=== PATIENT | male | born 1990 | race Caucasian/White ===

== ENCOUNTER 2017-03-02 10:27 | Emergency (ER) | payer OTHER ==
[2017-03-02 11:56] LABS: Basophils % (A) 0 %; CH 32.6; CHCM 35.3; Eosinophils # (A) 0.1 k/uL (0-0.7); Eosinophils % (A) 2 %; HCT 44.9 % (39.0-53.0); HDW 2.37; HGB 15.3 gm/dL (13.0-17.5); Luc # (Auto) 0.08; Luc % (Auto) 1; Lymphocytes % (A) 17 %; MCH 31.6 pg (25.0-35.0); MCHC 34.1 g/dL (31.0-37.0); MCV 92.7 fL (80.0-100.0); Mean Platelet Volume 7.1; Monocytes # (A) 0.3 k/uL (0-1.0); Monocytes % (A) 6 %; Neutrophils # (A) 4.1 k/uL (1.3-7.7); Neutrophils % (A) 74 %; RBC 4.84 m/uL (4.30-5.90); RDW 12.1 % (11.5-15.5); WBC 5.6 k/uL (3.8-10.6); WBC (Perox) 5.28
--- NOTE | 2017-03-02 12:05 | XR ---
EXAMINATION TYPE: XR chest 2V DATE OF EXAM: 03/02/2017 12:00 PM COMPARISON: 09/15/2016 HISTORY: Chest pain TECHNIQUE: Frontal and lateral views of the chest are obtained. FINDINGS: There is no focal air space opacity, pleural effusion, or pneumothorax seen. The cardiac silhouette size is within normal limits. The osseous structures are intact. IMPRESSION: No acute cardiopulmonary process.
[2017-03-02 12:13] LABS: Anion Gap 9 mmol/L; Blood Urea Nitrogen 13 mg/dL (9-20); Calcium 9.6 mg/dL (8.4-10.2); Carbon Dioxide 28 mmol/L (22-30); Chloride 105 mmol/L (98-107); Glucose 95 mg/dL (74-99); Non-African American GFR(MDRD) >60 (>60 ml/min/1.73 sqM); Potassium 4.4 mmol/L (3.5-5.1); Sodium 142 mmol/L (137-145)
--- NOTE | 2017-03-02 12:39 | ED ---
General Adult HPI - General Chief complaint: Chest Pain Stated complaint: chest pain Source: patient Mode of arrival: wheelchair Limitations: no limitations - History of Present Illness Initial comments: 26-year-old male presented for evaluation of chest pain. He states that he was having some back pain at work and started getting very anxious about it. He started hyperventilating and the pain continued to spread into his chest. After few minutes this led to him feeling lightheaded and dizzy and having tingling sensation in his hands and his feet. He became diaphoretic and states he "felt like I was in a bubble, like there was a bag around me." Symptoms lasted for 15-20 minutes and then gradually resolved. He states there was a previous episode like this a couple months ago and he was evaluated at this facility with a full cardiac workup and found to be negative. He was instructed at that time to follow-up with his primary care physician for appropriate treatment and evaluation of anxiety but he never made the time. He presents with his mother and his grandmother. - Related Data Home Medications Medication Instructions Recorded Confirmed Aspirin EC [Ecotrin Low Dose] 162 mg PO ONCE PRN 03/02/17 03/02/17 Allergies Allergy/AdvReac Type Severity Reaction Status Date / Time No Known Allergies Allergy Verified 03/02/17 11:08 Review of Systems ROS Statement: Those systems with pertinent positive or pertinent negative responses have been documented in the HPI. ROS Other: All systems not noted in ROS Statement are negative. Constitutional: Denies: fever, chills, weakness, night sweats Eyes: Denies: eye pain, eye discharge, vision change ENT: Denies: ear pain, throat pain, dental pain Respiratory: Reports: dyspnea. Denies: cough, wheezes, hemoptysis, stridor Cardiovascular: Reports: chest pain. Denies: palpitations, dyspnea on exertion , orthopnea, edema, syncope, paroxysmal nocturnal dyspnea Endocrine: Denies: fatigue, polydipsia, polyuria Gastrointestinal: Reports: nausea. Denies: abdominal pain, vomiting, diarrhea, constipation Genitourinary: Denies: urgency, dysuria Musculoskeletal: Reports: back pain. Denies: joint swelling, arthralgia, myalgia Skin: Denies: rash, lesions Neurological: Reports: paresthesias. Denies: headache, weakness Psychiatric: Reports: anxiety. Denies: depression, auditory hallucinations, visual hallucinations Hematological/Lymphatic: Denies: easy bleeding, easy bruising Past Medical History Past Medical History: No Reported History History of Any Multi-Drug Resistant Organisms: None Reported Additional Past Surgical History / Comment(s): left ankle Past Psychological History: ADD/ADHD Smoking Status: Current some day smoker Past Alcohol Use History: Occasional Past Drug Use History: Marijuana General Exam Limitations: no limitations General appearance: alert, in no apparent distress Head exam: Present: atraumatic, normocephalic, normal inspection Eye exam: Present: normal appearance, PERRL, EOMI. Absent: scleral icterus, conjunctival injection, periorbital swelling ENT exam: Present: normal exam, mucous membranes moist Neck exam: Present: normal inspection. Absent: tenderness, meningismus, lymphadenopathy Respiratory exam: Present: normal lung sounds bilaterally. Absent: respiratory distress, wheezes, rales, rhonchi, stridor Cardiovascular Exam: Present: regular rate, normal rhythm, normal heart sounds. Absent: systolic murmur, diastolic murmur, rubs, gallop, clicks GI/Abdominal exam: Present: soft, normal bowel sounds. Absent: distended, tenderness, guarding, rebound, rigid Rectal exam: Present: deferred Extremities exam: Present: normal inspection, full ROM, normal capillary refill. Absent: tenderness, pedal edema, joint swelling, calf tenderness Back exam: Present: normal inspection Neurological exam: Present: alert, oriented X3, CN II-XII intact Psychiatric exam: Present: normal affect, normal mood Skin exam: Present: warm, dry, intact, normal color. Absent: rash Course Vital Signs 03/02/17 03/02/17 10:29 12:48 Temperature 97.1 F L 98.0 F Pulse Rate 79 73 Respiratory 20 18 Rate Blood Pressure 153/88 131/81 O2 Sat by Pulse 100 100 Oximetry EKG Findings - EKG Comments: EKG Findings:: Sinus rhythm with first-degree AV block and a ventricular rate of 71, EDWIN 216, QRS 98, QT/QTC 376/408. Medical Decision Making - Medical Decision Making 26-year-old presented for evaluation of chest pain and back pain with associated anxiety. He states that he had a similar episode a month ago and had a complete cardiac evaluation and was given outpatient follow-up but never kept the appointment. He has a benign physical examination without any abnormalities. He meets no PERC criteria but given this being his second occurance will obtain labs, ekg cxr. Labs revealed no significant abnormalities including a negative d-dimer. Chest x-ray showed no acute process and EKG as shown above. The patient was reevaluated and continued to have no complaints at this time. He was informed of all results and that he would be discharged with instructions to follow-up with his primary care physician this time for further treatment and evaluation of likely anxiety. He is further advised to return to this facility if his symptoms should worsen or persist. The patient acknowledged an understanding of this information and agreed with this plan of care. - Lab Data Result diagrams: 03/02/17 11:36 03/02/17 11:36 Lab Results 03/02/17 03/02/17 03/02/17 Range/Units 11:36 11:36 11:36 WBC 5.6 (3.8-10.6) k/uL RBC 4.84 (4.30-5.90) m/uL Hgb 15.3 (13.0-17.5) gm/dL Hct 44.9 (39.0-53.0) % MCV 92.7 (80.0-100.0) fL MCH 31.6 (25.0-35.0) pg MCHC 34.1 (31.0-37.0) g/dL RDW 12.1 (11.5-15.5) % Plt Count 211 (150-450) k/uL Neutrophils % 74 % Lymphocytes % 17 % Monocytes % 6 % Eosinophils % 2 % Basophils % 0 % Neutrophils # 4.1 (1.3-7.7) k/uL Lymphocytes # 1.0 (1.0-4.8) k/uL Monocytes # 0.3 (0-1.0) k/uL Eosinophils # 0.1 (0-0.7) k/uL Basophils # 0.0 (0-0.2) k/uL D-Dimer 0.18 (<0.60) mg/L FEU Sodium 142 (137-145) mmol/L Potassium 4.4 (3.5-5.1) mmol/L Chloride 105 (98-107) mmol/L Carbon Dioxide 28 (22-30) mmol/L Anion Gap 9 mmol/L BUN 13 (9-20) mg/dL Creatinine 0.95 (0.66-1.25) mg/dL Est GFR (MDRD) Af Amer >60 (>60 ml/min/1.73 sqM) Est GFR (MDRD) Non-Af >60 (>60 ml/min/1.73 sqM) Glucose 95 (74-99) mg/dL Calcium 9.6 (8.4-10.2) mg/dL Disposition Clinical Impression: Chest pain, Shortness of breath Disposition: HOME SELF-CARE Condition: Stable Instructions: Chest Pain (ED), Anxiety (ED), Panic Attack (ED) Referrals: Shahriar Bain MD [Primary Care Provider] - 1-2 days Time of Disposition: 12:39
[2017-03-02 12:48] VITALS: BP 131/81; PULSE 73; RESP 18; TEMP 98
== END 2017-03-02 12:48 | disposition home or self-care (01) ==
LOC: EC 10:27
DX: R07.9 Chest pain, unspecified (principal); R06.02 Shortness of breath; M54.9 Dorsalgia, unspecified; F41.9 Anxiety disorder, unspecified; F17.200 Nicotine dependence, unspecified, uncomplicated
CPT/HCPCS: 36415; 71020; 80048; 85025; 85379; 93005; 99285

== ENCOUNTER 2018-03-08 11:00 | Emergency (ER) | payer OTHER ==
[2018-03-08 11:08] VITALS: RESP 16; TEMP 97.6
--- NOTE | 2018-03-08 11:41 | ED ---
General Adult HPI - General Chief complaint: Head Injury Stated complaint: Head Injury Time Seen by Provider: 03/08/18 11:11 Source: patient, RN notes reviewed, old records reviewed Mode of arrival: ambulatory Limitations: no limitations - History of Present Illness Initial comments: This is a 19-year-old male the ER for evaluation. Patient resents today for evaluation regards to headache. Dizziness, lightheadedness foggy feeling. Patient states he does have history of prior head injury concussion. States he had a head injury about 2 days ago and symptoms progress worse over the last day and a half. Mild nausea no vomiting. Patient states he sometimes feels like the room is spinning. Denies loss of consciousness during fall. No modifying factors for pain - Related Data Home Medications Medication Instructions Recorded Confirmed No Known Home Medications [No 03/08/18 03/08/18 Known Home Medications] Allergies Allergy/AdvReac Type Severity Reaction Status Date / Time No Known Allergies Allergy Verified 03/08/18 11:21 Review of Systems ROS Statement: Those systems with pertinent positive or pertinent negative responses have been documented in the HPI. ROS Other: All systems not noted in ROS Statement are negative. Past Medical History Past Medical History: No Reported History History of Any Multi-Drug Resistant Organisms: None Reported Additional Past Surgical History / Comment(s): left ankle Past Psychological History: ADD/ADHD Smoking Status: Current some day smoker Past Alcohol Use History: Occasional Past Drug Use History: Marijuana General Exam Limitations: no limitations General appearance: alert, in no apparent distress Head exam: Present: atraumatic, normocephalic, normal inspection Eye exam: Present: normal appearance, PERRL, EOMI. Absent: scleral icterus, conjunctival injection, periorbital swelling ENT exam: Present: normal exam, mucous membranes moist Neck exam: Present: normal inspection. Absent: tenderness, meningismus, lymphadenopathy Respiratory exam: Present: normal lung sounds bilaterally. Absent: respiratory distress, wheezes, rales, rhonchi, stridor Cardiovascular Exam: Present: regular rate, normal rhythm, normal heart sounds. Absent: systolic murmur, diastolic murmur, rubs, gallop, clicks GI/Abdominal exam: Present: soft, normal bowel sounds. Absent: distended, tenderness, guarding, rebound, rigid Extremities exam: Present: normal inspection, full ROM, normal capillary refill. Absent: tenderness, pedal edema, joint swelling, calf tenderness Back exam: Present: normal inspection Neurological exam: Present: alert, oriented X3, CN II-XII intact Psychiatric exam: Present: normal affect, normal mood Skin exam: Present: warm, dry, intact, normal color. Absent: rash Course Vital Signs 03/08/18 11:04 Temperature 97.6 F Pulse Rate 66 Respiratory 16 Rate Blood Pressure 136/88 O2 Sat by Pulse 96 Oximetry - Reevaluation(s) Reevaluation #1: 03/08/18 12:57 Patient also asymptomatic Medical Decision Making - Medical Decision Making 27 male the ER with head injury, concussion. Patient will be discharged home antiemetics and anti-inflammatories - Radiology Data Radiology results: report reviewed (CT brain CT facial bones negative for acute disease), image reviewed Disposition Clinical Impression: Closed head injury, Concussion without loss of consciousness Disposition: HOME SELF-CARE Condition: Good Instructions: Concussion (ED) Is patient prescribed a controlled substance at d/c from ED?: No Referrals: Shahriar Bain MD [Primary Care Provider] - 1-2 days
--- NOTE | 2018-03-08 12:06 | CT ---
EXAMINATION TYPE: CT brain wo con DATE OF EXAM: 03/08/2018 COMPARISON: Prior CT brain 06/02/2013 HISTORY: Fall face first, bruising to Rt eye, "feels foggy" CT DLP: 1416.1 (brain and facial) mGycm. Automated Exposure Control for Dose Reduction was Utilized. TECHNIQUE: CT scan of the head is performed without contrast. FINDINGS: There is no acute intracranial hemorrhage, mass effect, or midline shift identified. The ventricles and sulci are within normal limits in size. The globes are intact and the visualized sin uses are showing some inflammatory change, mucosal thickening present within the maxillary sinuses, e thmoid air cells and sphenoid sinus. IMPRESSION: No acute intracranial hemorrhage, mass effect, or midline shift is seen.
--- NOTE | 2018-03-08 12:10 | CT ---
EXAMINATION TYPE: CT facial bones wo con DATE OF EXAM: 03/08/2018 COMPARISON: CT brain same date HISTORY: Fall face first, bruising to Rt eye, "feels foggy" CT DLP: 1416.1(brain and facial) mGycm Automated exposure control for dose reduction was used. TECHNIQUE: CT scan of the sinuses is performed without contrast, axial images are obtained, coronal r eformatted images are also reviewed. FINDINGS: The paranasal sinuses including the frontal, ethmoid, sphenoid, and maxillary sinuses bila terally are remarkable for some lobular soft tissue attenuation within the bilateral maxillary sinuse s possibly representing mucosal thickening, difficult to exclude small polyps, mucosal disease presen t within the frontal sinus, ethmoid air cells, sphenoid sinus. There is no evident fracture. The ost iomeatal complex is patent on the right, minimal inflammatory change suspected at the infundibulum on the left on the coronal images. Lizzy bullosa present on the right. There is a deviated nasal septu m towards the left. Visualized portion of mastoid air cells show no abnormal opacification. The globes are intact bilate rally. IMPRESSION: Sinus disease, no evident acute traumatic injury
[2018-03-08 13:09] VITALS: BP 131/65; PULSE 78
== END 2018-03-08 13:08 | disposition home or self-care (01) ==
LOC: EC 11:00
DX: S06.0X0A Concussion without loss of consciousness, initial encounter (principal); F17.200 Nicotine dependence, unspecified, uncomplicated; W19.XXXA Unspecified fall, initial encounter; Y92.009 Unspecified place in unspecified non-institutional (private) residence as the place of occurrence of the external cause
CPT/HCPCS: 70450; 70486; 99284

== ENCOUNTER 2024-02-06 14:20 | Emergency (ER) | payer OTHER ==
[2024-02-06] MEDS: SODIUM CHLORIDE 0.9% 1,000 ML IV ONE (14:39)
[2024-02-06] MEDS: FAMOTIDINE 20 MG/2 ML VIAL IV STA (14:40)
[2024-02-06] MEDS: diphenhydrAMINE 50 MG/ML 1 ML VIAL IVP STA (14:40)
[2024-02-06] MEDS: methylPREDNISolone SOD SUCCI 125 MG/2 ML VIAL IV STA (14:40)
[2024-02-06] MEDS: LORazepam 2 MG/ML INJ IV STA (15:15)
--- NOTE | 2024-02-06 15:23 | ED ---
Allergic Reaction HPI - General Chief complaint: Allergic Reaction Stated complaint: allergic reaction Time Seen by Provider: 02/06/24 14:24 Source: patient, RN notes reviewed Mode of arrival: ambulatory Limitations: no limitations - History of Present Illness Initial Comments: 33-year-old male presents emergency department chief complaint of allergic re action. Patient states that he is unsure what he got himself into. Patient states he started having some itching and swelling in his groin, armpits he states that it quickly spread to his face diffuse across his body with a rash. He states that he felt short of breath he states he never had any like this in the past. He states he does use a large amount of chemicals and exposed to multiple things as he does morgan. Patient denies fever chills she did not take any Benadryl prior to arrival. - Related Data Previous Rx's Medication Instructions Recorded Naproxen [Naprosyn] 500 mg PO Q12HR PRN #30 tab 03/08/18 Ondansetron Odt [Zofran ODT] 4 mg PO Q8HR PRN #30 tab 03/08/18 predniSONE 50 mg PO DAILY #5 tab 02/06/24 Allergies Allergy/AdvReac Type Severity Reaction Status Date / Time No Known Allergies Allergy Verified 02/06/24 14:25 Review of Systems ROS Statement: Those systems with pertinent positive or pertinent negative responses have been documented in the HPI. ROS Other: All systems not noted in ROS Statement are negative. Past Medical History Past Medical History: No Reported History History of Any Multi-Drug Resistant Organisms: None Reported Additional Past Surgical History / Comment(s): left ankle Past Psychological History: ADD/ADHD Smoking Status: Never smoker Past Alcohol Use History: Occasional Past Drug Use History: Marijuana General Exam Limitations: no limitations General appearance: alert, in no apparent distress Head exam: Present: atraumatic, normocephalic, normal inspection Eye exam: Present: normal appearance, PERRL, EOMI. Absent: scleral icterus, conjunctival injection, periorbital swelling ENT exam: Present: normal exam, normal oropharynx, mucous membranes moist Neck exam: Present: normal inspection, full ROM. Absent: tenderness, meningismus, lymphadenopathy Respiratory exam: Present: normal lung sounds bilaterally. Absent: respiratory distress, wheezes, rales, rhonchi, stridor Cardiovascular Exam: Present: regular rate, normal rhythm, normal heart sounds. Absent: systolic murmur, diastolic murmur, rubs, gallop, clicks Skin exam: Present: warm, dry, intact, normal color, rash, urticaria Course Vital Signs 02/06/24 14:23 Temperature 98.3 F Pulse Rate 99 Respiratory 22 Rate Blood Pressure 143/94 O2 Sat by Pulse 100 Oximetry Medical Decision Making - Medical Decision Making Was pt. sent in by a medical professional or institution (TAQUERIA Hood, ICE CREAM MACHINE OPERATOR, urgent care, hospital, or long-term...) When possible be specific @ -No Did you speak to anyone other than the patient for history (EMS, parent, family, police, friend...)? What history was obtained from this source @ -No Did you review nursing and triage notes (agree or disagree)? Why? @ -I reviewed and agree with nursing and triage notes Were old charts reviewed (outside hosp., previous admission, EMS record, old EKG, old radiological studies, urgent care reports/EKG's, long-term records)? Report findings @ -No old charts were reviewed Differential Diagnosis (chest pain, altered mental status, abdominal pain women, abdominal pain men, vaginal bleeding, weakness, fever, dyspnea, syncope, headache, dizziness, GI bleed, back pain, seizure, CVA, palpatations, mental health, musculoskeletal)? @ -Allergic reaction, contact dermatitis EKG interpreted by me (3pts min.). @ -None X-rays interpreted by me (1pt min.). @ -None done CT interpreted by me (1pt min.). @ -None done U/S interpreted by me (1pt. min.). @ -None done What testing was considered but not performed or refused? (CT, X-rays, U/S, labs)? Why? @ -None What meds were considered but not given or refused? Why? @ -None Did you discuss the management of the patient with other professionals (professionals i.e. TAQUERIA Hood, ICE CREAM MACHINE OPERATOR, lab, RT, psych nurse, child welfare social worker, cream separator operator, teacher, human resources officer, case management coordinator)? Give summary @ -No Was smoking cessation discussed for >3mins.? @ -No Was critical care preformed (if so, how long)? @ -No Were there social determinants of health that impacted care today? How? (Homelessness, low income, unemployed, alcoholism, drug addiction, transportation, low edu. Level, literacy, decrease access to med. care, [facility], rehab)? @ -No Was there de-escalation of care discussed even if they declined (Discuss DNR or withdrawal of care, Hospice)? DNR status @ -No What co-morbidities impacted this encounter? (DM, HTN, Smoking, COPD, CAD, Cancer, CVA, ARF, Chemo, Hep., AIDS, mental health diagnosis, sleep apnea, morbid obesity)? @ -None Was patient admitted / discharged? Hospital course, mention meds given and route, prescriptions, significant lab abnormalities, going to OR and other pertinent info. @ -Discharge patient is greatly improved after Solu-Medrol, Benadryl and Pepcid return for as discussed. Patient will continue antihistamines. Undiagnosed new problem with uncertain prognosis? @ -No Drug Therapy requiring intensive monitoring for toxicity (Heparin, Nitro, Insulin, Cardizem)? @ -No Were any procedures done? @ -No Diagnosis/symptom? @ -Allergic reaction Acute, or Chronic, or Acute on Chronic? @Acute Uncomplicated (without systemic symptoms) or Complicated (systemic symptoms)? @ -Uncomplicated Side effects of treatment? @ -No Exacerbation, Progression, or Severe Exacerbation? @ -No Poses a threat to life or bodily function? How? (Chest pain, [place], CA, pneumonia, PE, COPD, DKA, ARF, appy, cholecystitis, CVA, Diverticulitis, Homicidal, Suicidal, threat to staff... and all critical care pts) @ -No Disposition Clinical Impression: Allergic reaction Disposition: HOME SELF-CARE Condition: Stable Instructions (If sedation given, give patient instructions): General Allergic Reaction (ED) Additional Instructions: Please return to the Emergency Department if symptoms worsen or any other concerns. Prescriptions: predniSONE 50 mg PO DAILY #5 tab Is patient prescribed a controlled substance at d/c from ED?: No Referrals: Shahriar Bain MD [Primary Care Provider] - 1-2 days Time of Disposition: 16:00
[2024-02-06 16:51] VITALS: BP 118/77; PULSE 80; RESP 18; TEMP 98
== END 2024-02-06 16:25 | disposition home or self-care (01) ==
LOC: EC 14:20
DX: T78.40XA Allergy, unspecified, initial encounter (principal); F12.90 Cannabis use, unspecified, uncomplicated
CPT/HCPCS: 99283; 96374; 96375 ×3; 96361 ×2; J2060; J1200; J3490; J2919

== ENCOUNTER 2024-02-07 06:08 | Emergency (ER) | payer OTHER ==
[2024-02-07 06:15] VITALS: RESP 18
--- NOTE | 2024-02-07 06:53 | ED ---
Allergic Reaction HPI - General Chief complaint: Allergic Reaction Stated complaint: Allergic reaction, last visit 02/06/24 Time Seen by Provider: 02/07/24 06:45 Source: patient, RN notes reviewed Mode of arrival: ambulatory Limitations: no limitations - History of Present Illness Initial Comments: This is a 33 year old male who presents to the emergency department for an allergic reaction. Patient was evaluated here in the emergency department yesterday for concerns of allergic reaction. He states that he broke out in hives and felt like his throat was almost starting to close. His symptoms were well-controlled in the emergency department after receiving a steroid, Benadryl, and famotidine. He was discharged with a prescription for prednisone. States that he felt better after leaving for a couple of hours, but feels like symptoms then returned and got worse. Describes the rash as very itchy. MD Complaint: allergic reaction, hives - Related Data Previous Rx's Medication Instructions Recorded Naproxen [Naprosyn] 500 mg PO Q12HR PRN #30 tab 03/08/18 Ondansetron Odt [Zofran ODT] 4 mg PO Q8HR PRN #30 tab 03/08/18 predniSONE 50 mg PO DAILY #5 tab 02/06/24 Clobetasol Propionate [Temovate 1 applic TP BID PRN #60 gm 02/07/24 0.05% Cream] Famotidine 40 mg PO DAILY 7 Days #7 tablet 02/07/24 Allergies Allergy/AdvReac Type Severity Reaction Status Date / Time No Known Allergies Allergy Verified 02/07/24 06:13 Review of Systems ROS Statement: Those systems with pertinent positive or pertinent negative responses have been documented in the HPI. ROS Other: All systems not noted in ROS Statement are negative. Past Medical History Past Medical History: No Reported History History of Any Multi-Drug Resistant Organisms: None Reported Additional Past Surgical History / Comment(s): left ankle Past Psychological History: ADD/ADHD Smoking Status: Never smoker Past Alcohol Use History: Occasional Past Drug Use History: Marijuana General Exam Limitations: no limitations General appearance: alert, in no apparent distress Head exam: Present: atraumatic, normocephalic, normal inspection Respiratory exam: Present: normal lung sounds bilaterally. Absent: respiratory distress, wheezes, rales, rhonchi, stridor Cardiovascular Exam: Present: regular rate, normal rhythm, normal heart sounds. Absent: systolic murmur, diastolic murmur, rubs, gallop, clicks Extremities exam: Present: other (Urticaria to the bilateral upper and lower extremities as well as the trunk) Neurological exam: Present: alert, oriented X3, CN II-XII intact Psychiatric exam: Present: normal affect, normal mood Course Vital Signs 02/07/24 02/07/24 02/07/24 06:10 08:13 08:27 Temperature 97.5 F L 98.1 F 98.1 F Pulse Rate 93 86 86 Respiratory 18 18 18 Rate Blood Pressure 144/89 136/78 136/78 O2 Sat by Pulse 99 100 100 Oximetry Medical Decision Making - Medical Decision Making This is a 33-year-old male who presents to the emergency department for hives. Was pt. sent in by a medical professional or institution? @ -No Did you speak to anyone other than the patient for history? @ -No Did you review nursing and triage notes? @ -Yes, and I agree, it is accurate with regards to the patient's symptoms. Were old charts reviewed? @ -No Differential Diagnosis? @ -Differential Rash: Roseola, measles, Lyme disease, erythema multiforme, cellulitis, toxic shock syndrome, Kobe Bari syndrome, Kawasaki disease, malik mountain spotted fever, contact dermatitis, allergic dermatitis, measles, mumps, rubella, vari shayy, meningococcal disease, drug reaction, coxsackievirus, This is not meant to be an all-inclusive list. EKG interpreted by me (3pts min.)? @ -Not obtained X-rays interpreted by me (1pt min.)? @ -Not obtained CT interpreted by me (1pt min.)? @ -Not obtained U/S interpreted by me (1pt. min.)? @ -Not obtained What testing was considered but not performed? (CT, X-rays, U/S, labs)? Why? @ -None What meds were considered but not given? Why? @ -None Did you discuss the management of the patient with other professionals? @ -No Did you reconcile home meds? @ -No Was smoking cessation discussed for >3mins.? @ -I discussed smoking cessation for greater than 3 minutes. The risk of smoking were discussed with the patient including but not limited to risks of cancer, stroke, coronary artery disease and COPD. Also discussed with patient were multiple methods of quitting smoking. Lastly we discussed the financial cost of smoking. Was critical care preformed (if so, how long)? @ -No Were there social determinants of health that impacted care today? How? (Homelessness, low income, unemployed, alcoholism, drug addiction, transportation, low edu. Level, literacy, decrease access to med. care, prison, rehab)? @ -No Was there de-escalation of care discussed even if they declined? (Discuss DNR or withdrawal of care, Hospice)? @ -No What co-morbidities impacted this encounter? (DM, HTN, Smoking, COPD, CAD, Cancer, CVA, Hep., AIDS, mental health diagnosis, sleep apnea, morbid obesity)? @ -Smoking Was patient admitted / discharged? @ -Discharged. Physical examination consistent with urticaria. Discussed with the patient that this does not resolve immediately and can take time. He was given another dose of Solu-Medrol, Benadryl, and famotidine in the emergency department. Prescription for famotidine and clobetasol cream provided with dosing instructions reviewed. Advised to continue taking an antihistamine such as Benadryl as well. Patient discharged home in stable condition and advised to follow-up with his primary care provider. Undiagnosed new problem with uncertain prognosis? @ -None Drug Therapy requiring intensive monitoring for toxicity (Heparin, Nitro, Insulin, Cardizem)? @ -None Were any procedures done? @ -None Diagnosis/symptom? @ -Allergic reaction, urticaria Acute, or Chronic, or Acute on Chronic? @ -Acute Uncomplicated (without systemic symptoms) or Complicated (systemic symptoms)? @ -Uncomplicated Side effects of treatment? @ -None Exacerbation, Progression, or Severe Exacerbation] @ -Not applicable Poses a threat to life or bodily function? @ -No Return precautions reviewed in depth, the patient is instructed to return to the emergency department with any new, worsening, or concerning symptoms. Patient verbalized understanding. This case was discussed in detail with the attending ED physician, Dr. Troy. Presentation, findings, and treatment plan discussed in detail as well. Disposition Clinical Impression: Allergic reaction, Urticaria, Nicotine dependence Disposition: HOME SELF-CARE Instructions (If sedation given, give patient instructions): Urticaria (ED) Additional Instructions: Return to the emergency department with any new, worsening, or concerning symptoms. Continue taking the prednisone daily. Make sure you are taking Benadryl or another [id number] antihistamine. Also take the famotidine daily for 7 days as prescribed. You can use the clobetasol cream twice daily to the affected areas. Do not apply this to the face. Follow up with your primary care provider in 1-2 days. Prescriptions: Famotidine 40 mg PO DAILY 7 Days #7 tablet Clobetasol Propionate [Temovate 0.05% Cream] 1 applic TP BID PRN #60 gm PRN Reason: Itching Is patient prescribed a controlled substance at d/c from ED?: No Referrals: Shahriar Bain MD [Primary Care Provider] - 1-2 days Time of Disposition: 07:33
[2024-02-07] MEDS: diphenhydrAMINE 50 MG/ML 1 ML VIAL IM STA (07:38)
[2024-02-07] MEDS: CLOBETASOL PROP 0.05% CR 15GM TOPICAL STA (07:38)
[2024-02-07] MEDS: FAMOTIDINE 20 MG TAB PO STA (07:39)
[2024-02-07] MEDS: methylPREDNISolone SOD SUCCI 125 MG/2 ML VIAL IM ONE (07:41)
[2024-02-07 08:29] VITALS: BP 136/78; PULSE 86; TEMP 98.1
== END 2024-02-07 08:30 | disposition home or self-care (01) ==
LOC: EC 06:08
DX: L50.0 Allergic urticaria (principal); F17.200 Nicotine dependence, unspecified, uncomplicated
CPT/HCPCS: 99406; 96372; 99283; J1200